=== PATIENT | male | born 1955 | race Hispanic/Latino ===

== ENCOUNTER 2017-01-28 15:25 | Emergency (ER) | payer MEDICARE, MEDICAID | END 2017-01-28 16:00 | disposition home or self-care (01) | LOC: ERS 15:25 | DX: S90.415A Abrasion, left lesser toe(s), initial encounter (principal); M25.075 Hemarthrosis, left foot; I25.10 Atherosclerotic heart disease of native coronary artery without angina pectoris; E11.40 Type 2 diabetes mellitus with diabetic neuropathy, unspecified; E11.39 Type 2 diabetes mellitus with other diabetic ophthalmic complication; H40.9 Unspecified glaucoma; E78.5 Hyperlipidemia, unspecified; I73.9 Peripheral vascular disease, unspecified; Y33.XXXA Other specified events, undetermined intent, initial encounter | CPT/HCPCS: 12001 ==

== ENCOUNTER 2017-04-09 16:57 | Emergency (ER) | payer MEDICARE, MEDICAID ==
[~2017-04-09 16:57] MED LIST: ISOVUE-370 76%-LOCM 1 ML ONE
[2017-04-09 18:15] LABS: #Basophils 0.1 thou/uL (0.0-0.2); #Eosinphils 0.1 thou/uL (0.0-0.7); #Lymphocytes 1.3 thou/uL (1.20-3.40); #Monocytes 0.9 thou/uL (0.11-0.59); #Neutrophils 9.5 thou/uL (1.40-6.50); %Basophils 0.9 % (0.0-1.0); %Eosinophils 0.9 % (0.0-10.0); %Lymphocytes 10.5 % (21.0-51.0); %Monocytes 7.8 % (0.0-10.0); %Neutrophils 79.9 % (42.0-75.0); Hemoglobin 11.1 g/dL (14.0-18.0); Mean Corpuscular HGB CONC 30.1 g/dL (32.0-36.0); Mean Corpuscular Hemoglobin 22.1 pg (27.0-31.0); Mean Corpuscular Volume 73.4 fl (80.0-94.0); Mean Platelet Volume 11.6 fL (7.4-10.4); Platelet Count 146 thou/uL (130-400); Red Blood Cell (RBC) Count 5.04 mill/uL (4.70-6.10); White Blood Cell (WBC) Count 11.9 thou/uL (4.8-10.8)
[2017-04-09 18:31] LABS: Elliptocytes SLIGHT = 2-5 cells (100X) (0-1/hpf); MDiff Complete? YES; Microcytosis SLIGHT = 6-15 cells (100X) (0-5/hpf); PLT Morphology Comment Appears Adequate; Polychromasia SLIGHT = 2-3 cells (100X) (0-2/hpf)
[2017-04-09 18:35] LABS: ALT (SGPT) 11 U/L (8-55); AST (SGOT) 17 U/L (5-34); Albumin 3.7 g/dL (3.5-5.0); Alkaline Phosphatase 203 U/L (40-150); Anion Gap 12 mmol/L (10-20); BUN (Urea Nitrogen) 15 mg/dL (8.4-25.7); Bilirubin, Total 0.4 mg/dL (0.2-1.2); Calc. Creatinine Clearance 0 mL/min (70-130); Calcium 9.3 mg/dL (7.8-10.44); Carbon Dioxide 27 mmol/L (22-29); Chloride 98 mmol/L (98-107); Estimated GFR-MDRD 72; Globulin 4.2 g/dL (2.4-3.5); Glucose 367 mg/dL (70-105); Potassium 4.5 mmol/L (3.5-5.1); Protein, Total 7.9 g/dL (6.0-8.3); Sodium 132 mmol/L (136-145)
[2017-04-09] MEDS ORDERED: diphenhydrAMINE 50 MG/ML VIAL ONE (20:03)
[2017-04-09] MEDS ORDERED: methylPREDNISolone Sod Succ/PF 125 MG/2 ML VIAL ONE (20:03)
[2017-04-09] MEDS ORDERED: Famotidine/PF 20 mg/2ml Vial ONE (20:03)
--- NOTE | 2017-04-09 22:40 | CT ---
CT ANGIO OF ABDOMEN AND PELVIS AND LOWER EXTREMITIES PERFORMED WITH INTRAVENOUS CONTRAST ENHANCEMENT WITH 3D RECONSTRUCTIONS: 04/09/17 HISTORY: Cool left leg with decreased pulses. History of stent placement approximately one month ago. The lung bases show chronic change and subsegmental atelectasis. There is a pleural based nodular den sity in the right lower lobe measuring 8 mm. The liver, and spleen show no focal abnormalities. The pancreas shows no mass. The gallbladder has b een removed. Right and left adrenal glands and right and left kidneys are normal in size. There is a nonobstructin g mid pole left renal calculus which measures approximately 14 mm in diameter. There are small periao rtic lymph nodes present. There is a fat containing midline anterior wall hernia present. Angiographic portion of this examination shows moderate atherosclerotic change of the infrarenal aort a. There are single renal arteries bilaterally without stenosis. The celiac and superior mesenteric a rteries are patent without stenosis and there is an TRAVIS present. Moderate atherosclerotic plaque at t he level of the bifurcation. On the right side, the right lower extremity runoff shows some mild narrowing at the origin of the ri ght common iliac artery. The vessels are somewhat small in caliber. There is atherosclerotic change o f the proximal left iliac artery and what appears to be a fairly high grade narrowing, although contr ast is seen distal to this level. The right external iliac artery shows some mild to moderate narrowi ng along its course with atherosclerotic change and mild to moderate narrowing of the common femoral artery at the level of the bifurcation into the superficial and profunda femoral arteries. Extensive calcified plaque formation along the course of the superficial femoral artery with areas of mild to moderate narrowing with more severe narrowing at the level of the adductor canal and extensive athero sclerotic change and marked stenosis of the popliteal artery. There is flow seen within the trifurcat ion and anterior tibial which ends near the calf without a definite dorsalis pedis visualized. The pe roneal and posterior tibial arteries continues to the foot. On the left side, there is moderate atherosclerotic plaque and mild narrowing to the common iliac art neftaly origin and internal iliac origins. There is areas of mild stenosis along the course of the left e xternal iliac artery and some moderate plaque formation of the common femoral artery and proximal sup erficial femoral artery which shows mild to moderate narrowing near its origin also narrowing of the profunda femoral artery. There is atherosclerotic change along the course of the superficial femoral artery with some fairly severe narrowing more distally above the level of the adductor canal and at a pproximately the level of the adductor canal. The popliteal artery shows fairly significant narrowing with atherosclerotic change proximally and distally. Flow is not seen within the popliteal artery fo r a short segment. Reconstituting probable via collaterals is a very tiny popliteal artery which give s off very faintly visualized anterior tibial, peroneal and posterior tibial arteries. Peroneal arter y occludes shortly after its origin. There is areas of marked narrowing of the common peroneal trunk and areas of stenosis along the posterior tibial and peroneal. Peroneal appears to intermittently occ lude. A dorsalis pedis is not visualized. The posterior tibial artery does extend to the foot. IMPRESSION: 1. Extensive atherosclerotic changes with multilevel areas of narrowing. 2. Moderate atherosclerotic changes of the infrarenal abdominal aorta which is somewhat small in caliber with fairly pronounced aortoiliac atherosclerotic disease. 3. The right lower extremity runoff includes mild to moderate narrowing of the common and spring bender al iliacs and what appears to be a high grade stenosis or proximal occlusion in the internal iliac. T here is also areas of moderate narrowing of the common femoral artery and along the course of the sup erficial femoral artery, particularly at the level of the adductor canal. Severe stenosis of the popl iteal artery, although there s a patent trifurcation. There is two vessel runoff to the foot. 4. On the left side, There is areas of mild narrowing of the left common and external iliac lew elver and common femoral as well as superficial femoral artery, more significant stenosis of the more distal superficial femoral artery and occlusion of the popliteal artery over a short segment with rec onstitution of the tiny popliteal artery which forms an anterior tibial artery. The common peroneal t runk shows significant stenosis. The anterior tibial artery occludes mid calf region. The peroneal ar ean intermittently occludes although there is probably reconstitution via small collaterals with a p osterior tibial artery extending into the foot. POS: ANAID
== END 2017-04-10 00:14 | disposition home or self-care (01) ==
LOC: ERS 16:57
DX: I73.9 Peripheral vascular disease, unspecified (principal); E11.40 Type 2 diabetes mellitus with diabetic neuropathy, unspecified; E11.39 Type 2 diabetes mellitus with other diabetic ophthalmic complication; I25.10 Atherosclerotic heart disease of native coronary artery without angina pectoris; H40.9 Unspecified glaucoma; E78.5 Hyperlipidemia, unspecified; M19.90 Unspecified osteoarthritis, unspecified site; F17.210 Nicotine dependence, cigarettes, uncomplicated
CPT/HCPCS: 36415; 75635; 80053; 83605; 85025; 96374; 96375; 99406; J1200; J2270; J2930; S0028

== ENCOUNTER 2018-02-12 10:13 | Emergency (ER) | payer MEDICARE, MEDICAID ==
[2018-02-12 11:13] LABS: Bilirubin Small (Negative); Blood, Urine Negative (Negative); Clarity CLEAR (Clear); Glucose, Urine (Dipstick) Negative (Negative); Leukocyte Negative (Negative); Nitrite Negative (Negative); Protein, Urine (Dipstick) Negative (Neg-Trace); Specific Gravity, Urine 1.019 (1.002-1.036)
--- NOTE | 2018-02-12 11:48 | ULT ---
ULTRASOUND SCROTUM TESTICLES DOPPLER DUPLEX: DATE: 02/12/2018. HISTORY: A 62-year-old male with right scrotal pain. TECHNIQUE: Isaac-scale evaluation of intrascrotal contents. Color flow Doppler and spectral waveform analysis of the testicles. FINDINGS: The bilateral testicles are normal in size, have homogeneously normal echogenicity, and have symmetri radames blood flow. The epididymal heads are bilaterally normal in size. There is no intratesticular ma ss or varicocele. There is a left small hydrocele. There is an asymmetrical moderately large region of extratesticular, moderately hyperechoic tissue in the right upper scrotum. Review of the CT dannie ogram of 12/07/2017 demonstrates no inguinal hernia or any other extrascrotal mass. Therefore, this probably just represents intrascrotal fat. IMPRESSION: 1. Small left hydrocele. 2. Otherwise negative. vanessa Abebe POS: ANAID
[2018-02-12] MEDS ORDERED: Dexamethasone 10 MG/ML VIAL ONE (11:55)
== END 2018-02-12 11:56 | disposition home or self-care (01) ==
LOC: ERS 10:13
DX: N50.811 Right testicular pain (principal); E11.40 Type 2 diabetes mellitus with diabetic neuropathy, unspecified; E11.51 Type 2 diabetes mellitus with diabetic peripheral angiopathy without gangrene; E78.5 Hyperlipidemia, unspecified; I25.10 Atherosclerotic heart disease of native coronary artery without angina pectoris; M19.90 Unspecified osteoarthritis, unspecified site; F17.210 Nicotine dependence, cigarettes, uncomplicated; Z71.6 Tobacco abuse counseling
CPT/HCPCS: 76870; 81003; 87086; 93976; J1100

== ENCOUNTER 2018-02-18 13:46 | Emergency (ER) | payer MEDICARE, MEDICAID ==
[2018-02-18 15:23] LABS: #Eosinphils 0.2 thou/uL (0.0-0.7); #Lymphocytes 1.4 thou/uL (1.20-3.40); #Monocytes 0.8 thou/uL (0.11-0.59); #Neutrophils 8.6 thou/uL (1.40-6.50); %Basophils 0.1 % (0.0-1.0); %Eosinophils 1.9 % (0.0-10.0); %Lymphocytes 12.7 % (21.0-51.0); %Monocytes 7.6 % (0.0-10.0); %Neutrophils 77.7 % (42.0-75.0); Hemoglobin 10.9 g/dL (14.0-18.0); Mean Corpuscular HGB CONC 31.2 g/dL (32.0-36.0); Mean Corpuscular Hemoglobin 24.6 pg (27.0-31.0); Mean Corpuscular Volume 78.9 fL (78.0-98.0); Mean Platelet Volume 9.7 fL (7.4-10.4); Platelet Count 181 thou/uL (130-400); RBC Distribution Width 15.2 % (11.5-14.5); Red Blood Cell (RBC) Count 4.41 mill/uL (4.70-6.10); White Blood Cell (WBC) Count 11.1 thou/uL (4.8-10.8)
[2018-02-18 15:44] LABS: ALT (SGPT) 15 U/L (8-55); AST (SGOT) 21 U/L (5-34); Albumin 3.5 g/dL (3.4-4.8); Alkaline Phosphatase 117 U/L (40-150); Anion Gap 11 mmol/L (10-20); BUN (Urea Nitrogen) 14 mg/dL (8.4-25.7); Bilirubin, Total 0.3 mg/dL (0.2-1.2); Calc. Creatinine Clearance 0 mL/min (70-130); Carbon Dioxide 26 mmol/L (23-31); Chloride 103 mmol/L (98-107); Estimated GFR-MDRD Greater than 90; Globulin 3.5 g/dL (2.4-3.5); Glucose 138 mg/dL (80-115); Potassium 4.2 mmol/L (3.5-5.1); Sodium 136 mmol/L (136-145)
[2018-02-18] MEDS ORDERED: cefTRIAXone\\ROCEPHIN 1 GM VIAL ONE (16:07)
[2018-02-18] MEDS ORDERED: Lidocaine 1% PF 5 ML VIAL ONE (16:08)
--- NOTE | 2018-02-18 16:08 | RAD ---
LEFT FOOT THREE VIEWS: 02/18/18 HISTORY: Left foot pain, ulceration in the left great toe. FINDINGS/IMPRESSION: No fracture, dislocation, bony destruction or periosteal reaction is seen. POS: [id number]
== END 2018-02-18 16:44 | disposition home or self-care (01) ==
LOC: ERS 13:46
DX: L03.116 Cellulitis of left lower limb (principal); B35.1 Tinea unguium; E11.621 Type 2 diabetes mellitus with foot ulcer; I25.10 Atherosclerotic heart disease of native coronary artery without angina pectoris; E11.40 Type 2 diabetes mellitus with diabetic neuropathy, unspecified; E78.5 Hyperlipidemia, unspecified; F17.210 Nicotine dependence, cigarettes, uncomplicated; Z79.82 Long term (current) use of aspirin; Z79.899 Other long term (current) drug therapy; Z79.4 Long term (current) use of insulin
CPT/HCPCS: 36415; 80053; 83605; 85025; 96372; J0696; J2001